=== PATIENT | male | born 1985 | race African-American/Black ===

== ENCOUNTER 2023-09-10 08:37 | Emergency (ER) | payer OTHER, SELFPAY ==
[2023-09-10 08:38] VITALS: BMI 38.1
--- NOTE | 2023-09-10 08:49 | ED.GENMED ---
History of Present Illness
General
Chief Complaint: Abdominal Symptoms
Source: patient and records
Time Seen by Provider: 09/10/23 08:43
History of Present Illness
History of Present Illness:
37-year-old male presenting the emergency department from [facility] to be evaluated by the GI team. Patient notes that around a year ago he had a swallowed foreign body that he notes for the last year has been stuck
somewhere within his small bowel. Patient was supposed to undergo a procedure at the hospital in [place] but states due to being transferred to a different long term facility he was never able to have this procedure done. He notes that he has had
some chronic GI issues since then and presented to [facility] a few weeks ago where they had discussed surgical options but wanted to proceed with what sounds like balloon type procedure prior to open excision and patient was scheduled to
have this done here with the GI team today. Patient has no new concerns at this time. There is no paperwork from outpatient GI team here.
Past History
Social History
Tobacco: Non-smoker
Alcohol: None
Drug: None
Personal: Single
Living: [facility]
Review of Systems
Review of Systems
All Other Systems: ROS reviewed and negative except as documented in HPI and ROS
Phy Exam
Physical Exam
Physical Exam:
GENERAL: Alert , in no apparent distress
EYE: conjunctiva clear
Head: Normocephalic atraumatic
NECK: Supple,
ENT: mmm.
LUNGS: no acute respiratory distress
NEUROLOGICAL: Alert and oriented
SKIN: Warm and dry, skin intact.
MUSCULOSKELETAL: well perfused.
PSYCH: Normal and appropriate interaction.
Scores
Heart Failure Risk
Heart Failure Risk Score: Not Applicable
Heart Score for Chest Pain Patients
STEMI patient?: Not applicable
Withdrawal Assessment of Alcohol
Withdrawal Assessment Completed?: Not applicable
Course
Vital Signs
Initial and Last Documented VS:
Initial Vital Signs
Temp Pulse Resp Pulse Ox
98.2 F 71 20 98
09/10/23 08:53 09/10/23 08:53 09/10/23 08:53 09/10/23 08:53
Last Documented Vital Signs
Temp Pulse Resp BP Pulse Ox
98.2 F 71 20 166/122 98
09/10/23 08:53 09/10/23 08:53 09/10/23 08:53 09/10/23 09:07 09/10/23 08:53
MDM/Problems Addressed
MDM/Problems Addressed:
37-year-old male present emergency department to be evaluated and potentially admitted to be seen by GI team for procedure to remove foreign body. Patient was told at [facility] that he may need open excision of this GI foreign body.
Unfortunately there is no record of this patient as being scheduled for any outpatient procedures today in our system. I will need to contact GI and possibly general surgery to discuss the case. Will attempt to obtain records from to see exactly
what procedures were recommended or potentially recommended for the future. Disposition pending.
*Pulse Oximetry
Patient hypoxic: no
*Critical Care Note
Total Time (30-74mins, 75-104mins- exclusive of procedures): Not Applicable
Data Reviewed
Review of Other/Old Records Reveals: Records and Radiology Studies (CT scan done on August 21 at [facility] shows a 7 mm linear metallic foreign object within the right lower quadrant small bowel without evidence of obstruction or
perforation)
Patient Management
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
Escalation/DeEscalation of care consider admission/obs:
9 AM: I spoke with our GI team who states there is no record of the patient scheduled to have any outpatient procedure. They do not have any record of this patient at all. I am attempting to contact [facility] to obtain the records from
the last ER visit. If possible I will discuss the case with their surgeon who reportedly saw the patient a few weeks ago.
9:45 AM: I spoke to medical sales consultant Ashleigh who works with Dr. Ramirez at [facility]. I explained patient's situation and that we do not do the type of procedure that was initially requested. She is aware and is okay with the patient
following up as an outpatient. I made an appointment for the patient with Dr. Ramirez at 3 PM on September 17. I also called and spoke with a compliance representative from the medical services at patient's long term named Shante and notified her that we do not do the
type of procedure that was initially requested. She states that she spoke with the GI office but is not sure with whom she spoke with who told them to send the patient to the ER today and that we would be able to do the procedure. I explained that
we do not do this type of scope and that there is no emergent indication to take the patient for surgery as this foreign body is almost 1-year-old. Patient is not having any fever, vomiting or significant pain. I informed Shante that the GI team
stated that any advanced scope procedures are done by [facility], [place] or [facility] and that they can contact these facilities if they so choose to pursue endoscopy procedure prior to surgery. I also notified her that I made an appointment
for the patient at [place] on September 17 at 3 PM. Patient is otherwise stable for discharge from this emergency department
ED Attending Note
-
Portions of this chart may have been created with voice recognition software.� Occasional wrong word or��sound alike� substitutions may have occurred due to the inherent limitations of voice recognition software.
Discharge Plan
Departure
Patient Disposition: Home (Routine Discharge)
Date of Disposition: 09/10/23
Time of Disposition: 09:27
Patient with high blood pressure during this ER visit?: Yes
Discharge Problem:
Foreign body alimentary tract
Instructions: Swallowed Objects, Adult (DC)
Referrals:
UNKNOWN - PT NOT,INTERVIEWE [Family Provider] -
Activity Restrictions/Additional Instructions:
You have an appointment scheduled with Dr. Patricia Ramirez at 3pm at [facility].
[address] [place] [address] [address]
[place] [address]
If there are any problems with getting to this appointment please contact their office and facility at [phone].
Interventions
Interventions:
*Risk Screen - Suicide Last Done: 09/10/23 08:45
*General Assessment Last Done: 09/10/23 08:45
*Neglect/Abuse Screening Last Done: 09/10/23 08:45
UD-Ruosqs-Iodudurybc Assessment Last Done: 09/10/23 09:08
[2023-09-10 09:07] VITALS: BP 166/122
--- NOTE | 2023-09-10 09:24 | EDRN ---
Pt. started yelling at primary RN because blood pressure cuff kept inflating as it was unable to take a blood pressure. RN asked pt to hold his arm still and pt. started yelling at RN stating that he would 'fuck up and end' RN's life and would have
his sister come and kill said RN because of the disrespect RN was showing pt in asking him to stay still for an initial blood pressure. Pt. could still be heard yelling about RN after RN left the room and saying he wanted to leave due to nothing
getting done and that he was supposed to be having surgery.
RN made dining manager aware of the situation. Security standing outside of room.
== END 2023-09-10 09:51 | disposition home or self-care (01) ==
LOC: EMR 08:37
PROVIDERS: EMERGENCY PHYSICIAN Emergency Medicine
DX: T18.9XXA Foreign body of alimentary tract, part unspecified, initial encounter (principal); X58.XXXA Exposure to other specified factors, initial encounter
CPT/HCPCS: 99282